=== PATIENT | female | born 1955 | race Caucasian/White ===

== ENCOUNTER → 2018-01-23 | Outpatient (CLI) | payer BC ==
[~2018-01-23] MED LIST: COZAAR 25MG25 MG/TAB; HUMALOG100 U/ML; INSLANT SQ; NEURONTIN100 MG/CAP PO; NORCO 325 MG-51 TAB PO; NORVASC 5MG5 MG/TAB PO; ZOFRAN ODT4 MG PO
== END ==
LOC: MC.RAD 09:50
DX: Z12.31 Encounter for screening mammogram for malignant neoplasm of breast (principal)

== ENCOUNTER → 2018-09-17 | Outpatient (CLI) | payer BC | LOC: MC.RAD 09:39 | DX: N63.31 Unspecified lump in axillary tail of the right breast (principal) ==

== ENCOUNTER → 2019-09-24 | Outpatient (CLI) | payer MEDICARE | LOC: MC.RAD 11:12 | DX: Z12.31 Encounter for screening mammogram for malignant neoplasm of breast (principal) ==

== ENCOUNTER 2020-09-21 17:15 | Observation (INO) | payer MEDICARE ==
[~2020-09-21] VITALS: Ht 154.9 cm; Wt 56.9 kg
[~2020-09-21 17:15] MED LIST changes: -COZAAR 25MG25 MG/TAB; +COZAAR 25MG25 MG/TAB PO
[2020-09-21 18:02] LABS: BASO # 0.1 (0.0-0.2); BASO % 0.6 % (0.0-2.0); EOS % 0.1 % (0-4.0); GRAN # 9.1 (1.4-6.5); GRAN % 73.4 % (42.2-75.2); HEMOGLOBIN 15.5 g/dl (12.5-16.0); LYMPH # 2.4 (1.2-3.4); LYMPH % 19.3 % (20.0-51.0); MEAN CELL VOLUME 89 fl (80.0-100.0); MEAN CORPUSCULAR HEMOGLOBIN 32 pg (27.0-31.0); MEAN CORPUSCULAR HGB CONC 35 g/dl (33.0-37.0); MEAN PLATELET VOLUME 9.1 fl (7.4-10.4); MONO # 0.8 (0.1-0.6); MONO % 6.4 % (1.7-9.3); PLATELET COUNT 270 K/mm3 (130-400); RED BLOOD COUNT 4.92 M/mm3 (4.10-5.30)
[2020-09-21 18:20] LABS: ALANINE AMINOTRANSFERASE 23 U/L (4-34); ALKALINE PHOSPHATASE 83 U/L (50-136); ANION GAP 11 mmol/L (7-16); AST,SGOT 33 U/L (15-37); BILIRUBIN,TOTAL 0.6 mg/dL (0.0-1.0); BLOOD UREA NITROGEN 15 mg/dL (7-17); CARBON DIOXIDE 29 mmol/L (22-30); CHLORIDE 94 mmol/L (98-107); CREATININE, serum 0.73 (0.52-1.25); GLUCOSE 172 mg/dL (74-106); POTASSIUM 4.1 mmol/L (3.4-5.0); SODIUM 134 mmol/L (137-145)
[2020-09-21 18:38] LABS: C-REACTIVE PROTEIN < 0.5 mg/dL (0.0-0.9)
[2020-09-21 21:22] LABS: CLOSTRIDIUM DIFF A/B NEG; CLOSTRIDIUM DIFF A/B INTERP No C.diff present
[2020-09-21] MEDS ORDERED: LANTUS100 U/ML SQ ×2 (21:52)
[2020-09-21] MEDS ORDERED: HCTZ 25MG TAB25 MG PO (21:55)
[2020-09-21] MEDS ORDERED: NORVASC 10MG10 MG PO (21:55)
[2020-09-21] MEDS ORDERED: COZAAR100 MG PO (21:56)
[2020-09-21] MEDS ORDERED: LIPITOR 10MG10 MG PO (21:57)
[2020-09-21] MEDS ORDERED: NEURONTIN300 MG/CAP PO (21:57)
[2020-09-21] MEDS ORDERED: ULTRAM 50MG TAB50 MG PO (21:57)
[2020-09-21 22:46] VITALS: BP 153/65; PULSE 91; TEMP 97.8
[2020-09-21 22:47] LABS: PROTHROMBIN TIME 10.8 SECONDS (9.7-12.8)
[2020-09-21 22:52] LABS: MAGNESIUM 2.1 mg/dL (1.6-2.3); PHOSPHOROUS 4.8 mg/dL (2.5-4.5)
[2020-09-22] VITALS (10 sets, daily range): BP systolic 106–140; BP diastolic 46–61; PULSE 85–102; TEMP 97.5–98.2
[2020-09-22 07:10] LABS: BASO # 0.1 (0.0-0.2); BASO % 0.7 % (0.0-2.0); EOS % 0.1 % (0-4.0); GRAN # 7.8 (1.4-6.5); GRAN % 76.7 % (42.2-75.2); LYMPH # 1.5 (1.2-3.4); MEAN CELL VOLUME 90 fl (80.0-100.0); MEAN CORPUSCULAR HEMOGLOBIN 31 pg (27.0-31.0); MEAN CORPUSCULAR HGB CONC 35 g/dl (33.0-37.0); MONO # 0.7 (0.1-0.6); MONO % 7.2 % (1.7-9.3); PLATELET COUNT 211 K/mm3 (130-400); RED BLOOD COUNT 4.34 M/mm3 (4.10-5.30)
[2020-09-22 07:20] LABS: HEMOGLOBIN 13.5 g/dl (12.5-16.0)
[2020-09-22 07:27] LABS: CALCIUM 8.9 mg/dL (8.4-10.2); CREATININE, serum 0.63 (0.52-1.25); POTASSIUM 3.9 mmol/L (3.4-5.0)
[2020-09-22 07:52] LABS: COLLECTION METHOD CLEAN CATCH
[2020-09-22 08:08] LABS: MUCOUS Present /lpf; PH 7 (5-8); SQUAMOUS EPITHELIAL 0-2 /hpf; URINE APPEARANCE Hazy; URINE BACTERIA None Seen /hpf; URINE BILIRUBIN Negative (NEGATIVE); URINE BLOOD 3+ (NEGATIVE); URINE COLOR Yellow; URINE GLUCOSE 3+ (NEGATIVE); URINE KETONE 1+ (NEGATIVE); URINE LEUKOCYTE ESTERASE 1+ (NEGATIVE); URINE NITRATE Negative (NEGATIVE); URINE PROTEIN(semi-quant) 2+ (NEGATIVE); URINE RBC >50 /hpf; URINE UROBILINOGEN Negative (NEGATIVE); URINE WBC >50 /hpf
[2020-09-22 08:20] LABS: TRICYCLIC ANTIDEPRESS URINE NEGATIVE
--- NOTE | 2020-09-22 11:55 | NUR ---
SW met with patient to complete intake assessment. Patient states that she currently lives with her father Martin [phone]. Patient provides that she does not utilize any DME, and is independent with ADL's. Patient states that her PCP is Dr. Kee, pharmacy is [facility], and that she is able to afford her medications at this time. Patient states that her DPOA-HC is her daughter Charmaine [phone]. Patient provides that her plan is to go home upon DC and has no problem with doing so. Patient does not currently utilize home health services at this time. SW will continue to follow.
--- NOTE | 2020-09-22 15:08 | NUR ---
MORNING MEDS given without concerns. pt with abd pain in lower abd, describes as cramping worsened with BM. reports having bloody stools x2, loose to liquid this shift. not seen by nurse as pt is independent in room. IVF infusing as ordered. PT tele-visited with DR Patterson and plan is for colonoscopy tomorrow and can have clears today. currently tolerating clears. had a slight episode of nausea with dilaudid administration btu resolved shortly. CIWA scores <2 with BP as main factor. no tremors noted and denies hallucinations. cll light within reach. all questions answered
--- NOTE | 2020-09-22 19:34 | NUR ---
DISCUSSED WITH attending Dr Arriola and ok to dc covid order as pt is unlikely positive. order completed
[2020-09-23] VITALS (14 sets, daily range): BP systolic 88–127; BP diastolic 32–50; PULSE 98–112; TEMP 97.5–98.8
--- NOTE | 2020-09-23 10:08 | NUR ---
Patient alert and oriented. denies any pain. patient had ECG and Colonoscopy. PACU nurse report report that Ischemic Colitis was found. Patient complained of dizziness post procedure. BP 94/38, 88/45, 92/39, 95/39. Patient was informed not to exist bed/ambulate at this time.
--- NOTE | 2020-09-23 11:03 | NUR ---
First visit from the council member. No needs right now.
[2020-09-23 11:50] LABS: BASO # 0.1 (0.0-0.2); BASO % 0.5 % (0.0-2.0); GRAN # 11.6 (1.4-6.5); GRAN % 86.9 % (42.2-75.2); HEMOGLOBIN 11.8 g/dl (12.5-16.0); LYMPH % 7.4 % (20.0-51.0); MEAN CELL VOLUME 93 fl (80.0-100.0); MEAN CORPUSCULAR HEMOGLOBIN 31 pg (27.0-31.0); MEAN CORPUSCULAR HGB CONC 33 g/dl (33.0-37.0); MEAN PLATELET VOLUME 9.3 fl (7.4-10.4); MONO # 0.6 (0.1-0.6); MONO % 4.7 % (1.7-9.3); PLATELET COUNT 215 K/mm3 (130-400); REDCELL DISTRIBUTION WIDTH-CV 12.2 % (11.5-14.5)
[2020-09-23 11:53] LABS: HEMATOCRIT 35.5 % (37.0-47.0)
[2020-09-23 11:55] LABS: CALCIUM 8.6 mg/dL (8.4-10.2); POTASSIUM 4.8 mmol/L (3.4-5.0)
--- NOTE | 2020-09-23 18:30 | NUR ---
Patient complained of nausea, gave compazine and zofran. fluid was changed from NS to LR. Levemir 10units, Novolog 5Units was started. Patient refuse any meal at this time. Patient scored 0-3 on detox protocol. unable to administer dilaudid for moderate pain at this time because SBP 80-112, DBP 32-53. Patient resting in bed at this time.
[2020-09-23 18:40] LABS: COLLECTION METHOD CLEAN CATCH
--- NOTE | 2020-09-23 19:01 | NUR ---
report given to ramón Maki
[2020-09-23 19:02] LABS: PH 5 (5-8); URINE APPEARANCE Clear; URINE COLOR Yellow; URINE GLUCOSE 4+ (NEGATIVE); URINE KETONE 2+ (NEGATIVE); URINE PROTEIN(semi-quant) 1+ (NEGATIVE)
[2020-09-23 19:03] LABS: MUCOUS Present /lpf; URINE BACTERIA Rare /hpf; URINE BILIRUBIN Negative (NEGATIVE); URINE BLOOD Negative (NEGATIVE); URINE LEUKOCYTE ESTERASE 1+ (NEGATIVE); URINE NITRATE Negative (NEGATIVE); URINE UROBILINOGEN Negative (NEGATIVE)
[2020-09-24] VITALS (7 sets, daily range): BP systolic 92–144; BP diastolic 34–62; PULSE 94–107; TEMP 98.1–99.2
--- NOTE | 2020-09-24 05:48 | NUR ---
Patient has been sleeping most the night. Denies pain and nausea. Her glucose has been trending down with insulin. She was able to eat apple sauce without nausea at bedtime. Her BP started to trend down again, 500ml LR bolus given. Increased fluids as well. No other changes at this time. Call light within reach.
--- NOTE | 2020-09-24 06:45 | NUR ---
PT IS LAYING IN BED AWAKE AT THIS TIME. DENIES ANY PAIN OR DISCOMFORT. ASSESSMENT COMPLETED. NO FURTHER CONCERNS.
[2020-09-24 07:58] LABS: BASO % 0.3 % (0.0-2.0); GRAN # 10.7 (1.4-6.5); GRAN % 77.4 % (42.2-75.2); HEMOGLOBIN 11.4 g/dl (12.5-16.0); LYMPH % 14.2 % (20.0-51.0); MEAN CELL VOLUME 90 fl (80.0-100.0); MEAN CORPUSCULAR HEMOGLOBIN 31 pg (27.0-31.0); MEAN CORPUSCULAR HGB CONC 34 g/dl (33.0-37.0); MEAN PLATELET VOLUME 9.2 fl (7.4-10.4); MONO # 1.1 (0.1-0.6); MONO % 7.7 % (1.7-9.3); PLATELET COUNT 196 K/mm3 (130-400); RED BLOOD COUNT 3.66 M/mm3 (4.10-5.30); REDCELL DISTRIBUTION WIDTH-CV 12.3 % (11.5-14.5)
[2020-09-24 08:02] LABS: HEMATOCRIT 33.1 % (37.0-47.0)
[2020-09-24 08:07] LABS: CALCIUM 8.6 mg/dL (8.4-10.2); CREATININE, serum 0.9 (0.52-1.25); POTASSIUM 3.7 mmol/L (3.4-5.0)
[2020-09-24] MEDS ORDERED: NICODERM C14 MG/PATC TD (12:29)
[2020-09-24] MEDS ORDERED: OMNICEF 300MG300 MG PO (12:32)
== END 2020-09-24 15:00 | disposition home or self-care (01) ==
LOC: COL.ER 17:15 → MEDICAL 21:21
PROVIDERS: Emergency Medicine; Nurse Practitioner; Nurse Practitioner Family; Physician Assistant; ADMIT Internal Medicine
DX: K55.9 Vascular disorder of intestine, unspecified (principal); D64.9 Anemia, unspecified; N39.0 Urinary tract infection, site not specified; E10.42 Type 1 diabetes mellitus with diabetic polyneuropathy; D72.829 Elevated white blood cell count, unspecified; I10 Essential (primary) hypertension; E78.5 Hyperlipidemia, unspecified; F17.210 Nicotine dependence, cigarettes, uncomplicated; F10.10 Alcohol abuse, uncomplicated; Z88.6 Allergy status to analgesic agent
CPT/HCPCS: 99223-AI; 99233-AI; 99239; G0378; J0744; J0780; J1170; J1815; J2405; J2704; J3010; J3411; J7030; J7050; J7120; Q9967

== ENCOUNTER → 2021-07-24 | Outpatient (CLI) | payer MEDICARE ==
[~2021-07-24] MED LIST changes: +COZAAR100 MG PO; +HCTZ 25MG TAB25 MG PO; +LANTUS100 U/ML SQ; +LIPITOR 10MG10 MG PO; +NEURONTIN300 MG/CAP PO; +NICODERM C14 MG/PATC TD; +NORVASC 10MG10 MG PO; +OMNICEF 300MG300 MG PO; +ULTRAM 50MG TAB50 MG PO
== END ==
LOC: MC.RAD 10:11
DX: Z12.31 Encounter for screening mammogram for malignant neoplasm of breast (principal)

== ENCOUNTER → 2021-08-22 | Outpatient (CLI) | payer MEDICARE ==
[2021-08-22 14:14] LABS: BASO % 0.4 % (0.0-2.0); GRAN # 6.8 K/mm3 (1.4-6.5); GRAN % 76.2 % (42.2-75.2); HEMATOCRIT 38.3 % (37.0-47.0); HEMOGLOBIN 12.8 g/dl (12.5-16.0); LYMPH # 1.5 K/mm3 (1.2-3.4); LYMPH % 17.1 % (20.0-51.0); MEAN CELL VOLUME 93 fl (80.0-100.0); MEAN CORPUSCULAR HEMOGLOBIN 31 pg (27.0-31.0); MEAN CORPUSCULAR HGB CONC 33 g/dl (33.0-37.0); MEAN PLATELET VOLUME 9.4 fl (7.4-10.4); MONO # 0.6 K/mm3 (0.1-0.6); MONO % 6.2 % (1.7-9.3); PLATELET COUNT 256 K/mm3 (130-400); RED BLOOD COUNT 4.11 M/mm3 (4.10-5.30); REDCELL DISTRIBUTION WIDTH-CV 12.2 % (11.5-14.5)
[2021-08-22 14:33] LABS: ALBUMIN 4.3 gm/dL (3.4-4.8); BILIRUBIN,TOTAL 0.6 mg/dL (0.2-1.2); CALCIUM 9.5 mg/dL (8.4-10.2); CREATININE, serum 0.79 mg/dL (0.57-1.11); POTASSIUM 3.9 mmol/L (3.5-4.5); TOTAL PROTEIN 7.5 gm/dL (6.2-8.1)
== END ==
LOC: COL.RAD 12:47 → COL.LAB 12:47 → COL.RAD 13:00
PROVIDERS: Family Medicine
DX: K52.9 Noninfective gastroenteritis and colitis, unspecified (principal)
CPT/HCPCS: Q9967

== ENCOUNTER → 2022-01-22 | Outpatient (CLI) | payer MEDICARE | LOC: MHCPAIN 09:49 | DX: M70.72 Other bursitis of hip, left hip (principal); M47.896 Other spondylosis, lumbar region | CPT/HCPCS: G0463 ==

== ENCOUNTER → 2022-02-26 | Outpatient (CLI) | payer MEDICARE | LOC: MHCPAIN 13:26 | DX: M70.72 Other bursitis of hip, left hip (principal); M47.896 Other spondylosis, lumbar region; M53.3 Sacrococcygeal disorders, not elsewhere classified | CPT/HCPCS: G0463 ==

== ENCOUNTER → 2022-03-18 | Outpatient (CLI) | payer MEDICARE ==
[~2022-03-18] MED LIST changes: +NORCO 325 MG-7.1 TAB PO
== END ==
LOC: MHCPAIN 12:30
DX: M53.3 Sacrococcygeal disorders, not elsewhere classified (principal)
CPT/HCPCS: G0260; J1040; Q9967

== ENCOUNTER 2022-03-23 13:13 | Emergency (ER) | payer MEDICARE ==
[~2022-03-23] VITALS: Ht 154.9 cm; Wt 59.1 kg
[~2022-03-23 13:13] MED LIST changes: -NORCO 325 MG-7.1 TAB PO
[2022-03-23 13:31] VITALS: PULSE 100; TEMP 98.1
[2022-03-23] MEDS ORDERED: NORCO 325 MG-7.1 TAB PO (15:46)
[2022-03-23 16:01] VITALS: BP 149/79
== END 2022-03-23 16:01 | disposition home or self-care (01) ==
LOC: COL.ER 13:13
DX: S52.502A Unspecified fracture of the lower end of left radius, initial encounter for closed fracture (principal); F17.200 Nicotine dependence, unspecified, uncomplicated; W01.198A Fall on same level from slipping, tripping and stumbling with subsequent striking against other object, initial encounter; Y92.002 Bathroom of unspecified non-institutional (private) residence as the place of occurrence of the external cause
CPT/HCPCS: J3010

== ENCOUNTER → 2022-05-20 | Outpatient (CLI) | payer MEDICARE ==
[~2022-05-20] MED LIST changes: +NORCO 325 MG-7.1 TAB PO
== END ==
LOC: MHCPAIN 12:11
DX: M48.062 Spinal stenosis, lumbar region with neurogenic claudication (principal); M54.59 Other low back pain; M53.3 Sacrococcygeal disorders, not elsewhere classified; M47.896 Other spondylosis, lumbar region; E10.9 Type 1 diabetes mellitus without complications; Z91.81 History of falling
CPT/HCPCS: G0463

== ENCOUNTER → 2022-05-21 | Outpatient (CLI) | payer MEDICARE | LOC: COL.RAD 09:34 | DX: M51.36 Other intervertebral disc degeneration, lumbar region (principal); M48.062 Spinal stenosis, lumbar region with neurogenic claudication ==

== ENCOUNTER → 2022-05-31 | Outpatient (CLI) | payer MEDICARE | LOC: COL.RAD 13:01 | DX: M48.062 Spinal stenosis, lumbar region with neurogenic claudication (principal) ==

== ENCOUNTER → 2022-06-07 | Outpatient (CLI) | payer MEDICARE | LOC: COL.RAD 07:41 | DX: M16.0 Bilateral primary osteoarthritis of hip (principal) ==

== ENCOUNTER → 2022-06-10 | Outpatient (CLI) | payer MEDICARE | LOC: MHCPAIN 13:20 | DX: M70.72 Other bursitis of hip, left hip (principal); M54.50 Low back pain, unspecified | CPT/HCPCS: G0463; J1100; J3301; Q9967 ==

== ENCOUNTER → 2022-07-30 | Outpatient (CLI) | payer MEDICARE | LOC: MHCPAIN 11:02 | DX: M70.72 Other bursitis of hip, left hip (principal); M54.50 Low back pain, unspecified; M48.062 Spinal stenosis, lumbar region with neurogenic claudication | CPT/HCPCS: G0463 ==

== ENCOUNTER → 2022-10-29 | Outpatient (CLI) | payer MEDICARE | LOC: MHCPAIN 10:33 | DX: M54.50 Low back pain, unspecified (principal); M48.062 Spinal stenosis, lumbar region with neurogenic claudication; M70.72 Other bursitis of hip, left hip | CPT/HCPCS: G0463 ==

== ENCOUNTER → 2022-11-13 | Outpatient (CLI) | payer MEDICARE | LOC: COL.RAD 11-05 16:30 | DX: I65.23 Occlusion and stenosis of bilateral carotid arteries (principal); E11.319 Type 2 diabetes mellitus with unspecified diabetic retinopathy without macular edema ==

== ENCOUNTER → 2022-11-25 | Outpatient (CLI) | payer MEDICARE | LOC: MHCPAIN 10:30 | DX: M54.50 Low back pain, unspecified (principal); M48.062 Spinal stenosis, lumbar region with neurogenic claudication | CPT/HCPCS: G0463 ==

== ENCOUNTER → 2022-12-12 | Outpatient (CLI) | payer MEDICARE | LOC: MHCPAIN 11-28 12:02 | DX: M48.062 Spinal stenosis, lumbar region with neurogenic claudication (principal); M47.816 Spondylosis without myelopathy or radiculopathy, lumbar region; M53.3 Sacrococcygeal disorders, not elsewhere classified | CPT/HCPCS: J1100; Q9967 ==

== ENCOUNTER → 2022-12-19 | Outpatient (CLI) | payer MEDICARE | LOC: MC.RAD 09:23 | DX: Z12.31 Encounter for screening mammogram for malignant neoplasm of breast (principal) ==

== ENCOUNTER → 2022-12-26 | Outpatient (CLI) | payer MEDICARE | LOC: DIA.ED 12:24 | DX: E10.40 Type 1 diabetes mellitus with diabetic neuropathy, unspecified (principal); E10.319 Type 1 diabetes mellitus with unspecified diabetic retinopathy without macular edema; I10 Essential (primary) hypertension | CPT/HCPCS: G0108 ==

== ENCOUNTER → 2023-01-06 | Outpatient (CLI) | payer MEDICARE | LOC: MHCPAIN 10:59 | DX: M54.50 Low back pain, unspecified (principal); M48.062 Spinal stenosis, lumbar region with neurogenic claudication; M47.816 Spondylosis without myelopathy or radiculopathy, lumbar region; M70.72 Other bursitis of hip, left hip | CPT/HCPCS: G0463 ==

== ENCOUNTER → 2023-01-20 | Outpatient (CLI) | payer MEDICARE | LOC: DIA.ED 10:52 | DX: I10 Essential (primary) hypertension (principal); E10.40 Type 1 diabetes mellitus with diabetic neuropathy, unspecified | CPT/HCPCS: G0108 ==

== ENCOUNTER → 2023-07-01 | Outpatient (CLI) | payer MEDICARE | LOC: COL.RAD 13:07 | DX: M51.36 Other intervertebral disc degeneration, lumbar region (principal); M41.85 Other forms of scoliosis, thoracolumbar region ==

== ENCOUNTER → 2023-07-01 | Outpatient (CLI) | payer MEDICARE | LOC: MHCPAIN 10:42 | DX: M47.896 Other spondylosis, lumbar region (principal); M48.062 Spinal stenosis, lumbar region with neurogenic claudication | CPT/HCPCS: G0463 ==

== ENCOUNTER → 2023-09-09 | Outpatient (CLI) | payer MEDICARE | LOC: MHCPAIN 11:19 | DX: M54.50 Low back pain, unspecified (principal); M48.062 Spinal stenosis, lumbar region with neurogenic claudication | CPT/HCPCS: G0463 ==

== ENCOUNTER → 2023-09-30 | Outpatient (CLI) | payer MEDICARE | LOC: MHCPAIN 13:54 | DX: M48.062 Spinal stenosis, lumbar region with neurogenic claudication (principal); F17.210 Nicotine dependence, cigarettes, uncomplicated; E11.9 Type 2 diabetes mellitus without complications; Z79.4 Long term (current) use of insulin | CPT/HCPCS: G0463 ==

== ENCOUNTER → 2023-10-29 | Outpatient (CLI) | payer MEDICARE | LOC: MHCPAIN 11:11 | DX: M48.062 Spinal stenosis, lumbar region with neurogenic claudication (principal); E11.9 Type 2 diabetes mellitus without complications; Z79.4 Long term (current) use of insulin; F17.210 Nicotine dependence, cigarettes, uncomplicated | CPT/HCPCS: G0463 ==